=== PATIENT | male | born 1985 | race Caucasian/White ===

== ENCOUNTER 2020-12-06 10:32 | Emergency (ER) | payer MEDICAID, SELFPAY ==
[2020-12-06 11:02] VITALS: BP 139/91; PULSE 69; RESP 18; TEMP 36.2; O2SAT 98; BMI 35.9
--- NOTE | 2020-12-06 11:10 | ED_ITS ---
HPI - Extremity Problem General: Chief complaint: Extremity Problem,Nontraumatic Stated complaint: R SIDE LEG PAIN Time Seen by Provider: 12/06/20 11:07 History of Present Illness: HPI Narrative: Mr. Car is a 35-year-old gentleman with history of gout, anxiety who presents emergency department due to skin lesions and bilateral foot pain. He reports generally not feeling well and about 3 days ago started noticing wounds popping up on his bilateral arms. He denies preceding injury or known provoking factor. These have since drained and become painful. He is applied topical creams without significant relief. He now has bilateral foot swelling that started in the right foot associated with pain. Pain is worse with touch and weightbearing and moderate to severe in intensity. Quality is sharp and aching. He denies other signs of systemic ill ness. He reports the skin lesions are similar to history of MRSA. No other changes in health reported. Review of Systems General: Reports: 10 or more systems reviewed and unremarkable except in HPI and below Physical Exam Narrative: EXAM NARRATIVE: GENERAL/CONSTITUTIONAL -mildly ill-appearing. .Uncomfortable due to pain. Eyes - PERRL, no conjunctival injection ENMT - Atraumatic external nose and ears. Moist mucous membranes NECK - supple. trachea midline CARDIOVASCULAR - regular rate and rhythm. Peripheral pulses 2+ and equal RESPIRATORY -clear to auscultation bilaterally. ABDOMEN/GI - Nontender/Nondistended. MSK - bilateral feet with swelling, scattered erythema more circumferential on the right. Tender to palpation. SKIN - Warm, Dry. There are small approximately 0.5 cm circular draining pustular lesions scattered about both arms, mild overlying erythema. NEURO - alert and appropriately oriented. Moves all extremities equally. Course ED course: - Patient was seen and evaluated by me at bedside - Patient placed on cardiac monitors, IV access obtained - Initial evaluation notable for mildly ill appearance, uncomfortable. Skin lesions on bilateral arms would be atypical for gout, they do appear scattered and draining with some purulent drainage. Bilateral feet are also mildly atypical for gout though certainly could be explained by such, patient reports compliance with daily gout medication. There are no evidence of lacerations or other skin punctures on the feet. Tenderness to even light palpation. -Analgesia given. - Labs notable for leukocytosis, normal lactate. Elevated uric acid - Imaging notable for no acute bony fracture - Upon serial reexamination after treatment the patient was improved with analgesia - Based on patient history, evaluation, labs, and imaging as interpreted the most likely cause of the patient's condition is gout flare with a separate cellulitic component. Patient reports history of MRSA and therefore clindamycin will be ordered in addition to analgesia and steroid which is what the patient has received previously for gout flares with good effect. - The results of ED evaluation were discussed with the patient including prescriptions and/or symptomatic cares (if applicable) including appropriate and responsible use, followup plan, and return precautions. The patient verbalized understanding and felt safe for discharge. - Patient discharged in satisfactory condition. Vital Signs: Vital signs: Vital Signs Temperature 98.2 F 12/06/20 12:53 Pulse Rate 76 12/06/20 12:53 Respiratory Rate 16 12/06/20 12:53 Blood Pressure 133/61 12/06/20 12:53 Pulse Oximetry 100 12/06/20 12:53 MDM - Extremity (Nontraumatic) Medical Records: Attestation: I reviewed the patient's medical records. Lab Data: Attestation: I reviewed the patient's lab results. Labs: Lab Results 12/06/20 12/06/20 12/06/20 11:30 11:30 11:30 WBC 20.4 10^3/uL H 10 ^3/uL (4.0-10.0) RBC 5.17 10^6/uL 10^6 /uL (4.1-5.3) Hgb 15.2 g/dL g/dL (11.7-16.6) Hct 47.8 % % (42.0-52.0) MCV 92.5 fl fl (80-94) MCH 29.4 pg pg (28.0-34.0) MCHC 31.8 g/dL g/dL (30.0-36.0) RDW 13.4 % % (12.1-15.1) Plt Count 459 10^3/cmm H 10 ^3/cmm (130-400) MPV 9.9 fL fL (7.4-10.4) Neut % (Auto) 71.4 % % Lymph % (Auto) 12.5 % % [place] % (Auto) 9.8 % % Eos % (Auto) 2.4 % % Baso % (Auto) 0.7 % % Neut # (Auto) 14.58 10^3/uL H 1 0^3/uL (1.8-7.7) Lymph # (Auto) 2.6 10^3/uL 10^3/ uL (0.8-4.8) [place] # (Auto) 2.0 10^3/uL H 10^ 3/uL (0.2-0.9) Eos # (Auto) 0.5 10^3/uL 10^3/ uL (0.0-0.8) Baso # (Auto) 0.1 10^3/uL 10^3/ uL (0.0-0.1) Nucleated RBC % (a uto) 0 % % Nucleated RBCs # 0.0 /100WBC /100W BC Sodium 136 mmol/L mmol/L (136-145) Potassium 4.2 mmol/L mmol/L (3.5-5.1) Chloride 95 mmol/L L mmol/ L (98-107) Carbon Dioxide 30 mmol/L H mmol/ L (22-29) Anion Gap 15.2 (5-19) BUN 12 mg/dL mg/dL (6-20) Creatinine 0.9 mg/dL mg/dL (0.7-1.2) GFR Calculation 96.0 mL/min mL/mi n (90-130) Glucose 90 mg/dL mg/dL (65-115) Calculated Osmolal ity 281 mOsm/kg L mOs m/kg (285-295) Lactic Acid 1.0 mmol/L mmol/L (0.5-2.2) Uric Acid 8.2 mg/dL H mg/dL (3.4-7.0) Calcium 9.4 mg/dL mg/dL (8.5-10.5) Total Bilirubin 0.4 mg/dL mg/dL (0.15-1.2) AST 30 U/L U/L (0-40) ALT 35 U/L U/L (0-41) Alkaline Phosphata se 144 IU/L H IU/L (40-130) Total Protein 7.6 g/dL g/dL (6.6-8.7) Albumin 3.9 g/dL g/dL (3.5-5.2) Globulin 3.7 g/dL g/dL (1.3-4.6) Discharge Plan Discharge Patient Disposition: Home Clinical Impression: Cellulitis, Gout Condition: Stable Prescriptions: New prednisone 10 mg tablet See Rx Instructions .ROUTE .COMPLEX Qty: 37 RF: 0 clindamycin HCl 150 mg capsule 450 mg PO Q8H 7 Days Qty: 63 RF: 0 oxycodone 5 mg tablet 5 mg PO Q4H PRN (Reason: pain) Qty: 20 RF: 0 Discharge Orders: Discharge ED (Routine); Ordered 12/06/20 Ordered By: Luis Fernando Amezcua Referrals: Christina Canada MD [Primary Care Provider] - Discharge Diet: Usual diet Discharge Activity: Resume usual activity Patient Instructions: Cellulitis (ED), Gout (ED), Opioid Safety Activity Restrictions/Additional Instructions: Thank you for visiting the emergency department. You were seen and evaluated for foot pain as well as rash. You have a gout flare as well as skin infection. You will be given a prescription for antibiotics, steroids, and also analgesic. Please follow all directions given. Please follow-up with your primary care provider. Please return to the emergency department for anything that you are concerned about and feel needs emergency department evaluation. Coding Level of Care Code ED Overlock Operator for Nedra Dobbins
[2020-12-06 11:12] VITALS: BP 127/78; PULSE 84; PULSE 86; RESP 16; TEMP 36.8; O2SAT 100
--- NOTE | 2020-12-06 11:17 | XR_ITS ---
WS: [id number] RIGHT FOOT: 2 VIEW(S) TECHNIQUE: AP and lateral. HISTORY: pain, swelling COMPARISON: None available. No acute fracture or dislocation. Moderate narrowing of the tarsometatarsal articulations. Normal alignment at the tarsometatarsal edvin culation. Several hammertoe deformities. Mild pes planus. Mild soft tissue edema surrounding the metatarsals. XR/XR foot RT 2V [id number] IMPRESSION: 1. Moderate degenerative changes in the midfoot and mild pes planus. 2. Mild soft tissue edema.
--- NOTE | 2020-12-06 11:17 | XR_ITS ---
WS: [id number] LEFT FOOT: 2 VIEW(S) TECHNIQUE: AP and lateral. HISTORY: pain, swelling COMPARISON: None available. No acute fracture or dislocation. Narrowing of the tarsal articulations and osteophyte formation from osteoarthritic disease. There is very mild soft tissue edema surrounding the metatarsals. Mild hammertoe deformities. XR/XR foot LT 2V [id number] IMPRESSION: 1. 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 2. Mild soft tissue edema surrounding the metatarsals. No fracture.
[2020-12-06 11:38] LABS: Basophils # 0.1 10^3/uL (0.0-0.1); Basophils % 0.7 %; Eosinophils # 0.5 10^3/uL (0.0-0.8); Eosinophils % 2.4 %; Hematocrit 47.8 % (42.0-52.0); Hemoglobin 15.2 g/dL (11.7-16.6); Lymphocytes # 2.6 10^3/uL (0.8-4.8); Lymphocytes % 12.5 %; Mean Corpuscular HGB Conc 31.8 g/dL (30.0-36.0); Mean Corpuscular Hemoglobin 29.4 pg (28.0-34.0); Mean Corpuscular Volume 92.5 fl (80-94); Mean Platelet Volume 9.9 fL (7.4-10.4); Monocytes % 9.8 %; Neutrophils # 14.58 10^3/uL (1.8-7.7); Neutrophils % 71.4 %; Nucleated Red Blood Cells % 0 %; Platelet Count 459 10^3/cmm (130-400); Red Blood Count 5.17 10^6/uL (4.1-5.3); Red Cell Distribution Width 13.4 % (12.1-15.1); White Blood Count 20.4 10^3/uL (4.0-10.0)
[2020-12-06] MEDS: ketorolac 30 mg/mL INJ 15 MG IVP (11:45)
[2020-12-06 11:47] VITALS: RESP 16; O2SAT 100
[2020-12-06] MEDS: morphine 4 mg/mL SDV 1 mL IVP (11:47)
[2020-12-06] MEDS: sodium chloride 0.9% 1,000 ML 999 ML IV (11:49)
[2020-12-06 11:50] VITALS: BP 132/75; PULSE 84; RESP 16; O2SAT 100
[2020-12-06 12:20] LABS: Alanine Aminotransferase 35 U/L (0-41); Albumin Level 3.9 g/dL (3.5-5.2); Alkaline Phosphatase 144 IU/L (40-130); Anion Gap 15.2 (5-19); Aspartate Amino Transferase 30 U/L (0-40); Blood Urea Nitrogen 12 mg/dL (6-20); Calcium 9.4 mg/dL (8.5-10.5); Carbon Dioxide 30 mmol/L (22-29); Chloride 95 mmol/L (98-107); Globulin 3.7 g/dL (1.3-4.6); Glucose 90 mg/dL (65-115); Osmolality Calculated 281 mOsm/kg (285-295); Potassium 4.2 mmol/L (3.5-5.1); Sodium 136 mmol/L (136-145); Total Bilirubin 0.4 mg/dL (0.15-1.2); Total Protein 7.6 g/dL (6.6-8.7); Uric Acid 8.2 mg/dL (3.4-7.0)
[2020-12-06] MEDS: clindamycin 150 mg Capsule 450 MG PO (12:50)
[2020-12-06 12:53] VITALS: BP 133/61; PULSE 76; RESP 16; TEMP 36.8; O2SAT 100
== END 2020-12-06 13:33 | disposition home or self-care (01) ==
PROVIDERS: Emergency Provider Emergency Medicine; PCP Family Medicine
DX: M10.9 Gout, unspecified (principal); L03.114 Cellulitis of left upper limb; L03.113 Cellulitis of right upper limb
CPT/HCPCS: 73620; 80053; 83605; 84550; 85025; 87040; 96361; 96374; 96375; 99284; J1885; J2270; J7030

== ENCOUNTER 2021-01-17 15:01 | Emergency (ER) | payer MEDICAID, SELFPAY ==
--- NOTE | 2021-01-17 15:14 | XR_ITS ---
WS: [id number] Exam: XR chest 1V portable [id number] Date/Time of Exam: 01/17/2021 3:14 PM Reason For Exam: chest pain No priors. Findings: The lungs are clear and fully expanded. Costophrenic angles are sharp. No infiltrates. Bronchovascula r relief appears normal. Cardiac silhouette is unremarkable. Bony elements are intact. XR/XR chest 1V portable [id number] IMPRESSION: Unremarkable chest radiograph.
--- NOTE | 2021-01-17 15:14 | ECG_ITS ---
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 Measurements Intervals [place] Rate: 84 P: 26 RI: 131 QRS: 20 QRSD: 98 T: 62 QT: 349 QTc: 414 Interpretive Statements SINUS RHYTHM NONSPECIFIC T-WAVE ABNORMALITY INTERPRETATION BASED ON A DEFAULT AGE OF 40 YEARS No previous ECG available for comparison Electronically Signed On 01-17-2021 21:56:07 SANITATION TRUCK DRIVER by Yusuf Mullins M.D. [id number]
[2021-01-17 15:15] VITALS: BP 120/79; PULSE 90; RESP 16; TEMP 37.3; O2SAT 96; BMI 35.6
[2021-01-17 15:50] LABS: Basophils # 0.1 10^3/uL (0.0-0.1); Basophils % 1.3 %; Eosinophils # 0.3 10^3/uL (0.0-0.8); Eosinophils % 2.8 %; Hematocrit 42.5 % (42.0-52.0); Hemoglobin 13.2 g/dL (11.7-16.6); Lymphocytes # 2.8 10^3/uL (0.8-4.8); Lymphocytes % 27.1 %; Mean Corpuscular HGB Conc 31.1 g/dL (30.0-36.0); Mean Corpuscular Hemoglobin 28.7 pg (28.0-34.0); Mean Corpuscular Volume 92.4 fl (80-94); Mean Platelet Volume 9.8 fL (7.4-10.4); Monocytes # 0.8 10^3/uL (0.2-0.9); Monocytes % 7.9 %; Neutrophils # 6.14 10^3/uL (1.8-7.7); Neutrophils % 59.8 %; Nucleated Red Blood Cells % 0 %; Platelet Count 529 10^3/cmm (130-400); White Blood Count 10.3 10^3/uL (4.0-10.0)
[2021-01-17 16:04] LABS: Alanine Aminotransferase 29 U/L (0-41); Albumin Level 3.9 g/dL (3.5-5.2); Alkaline Phosphatase 116 IU/L (40-130); Anion Gap 18.2 (5-19); Aspartate Amino Transferase 19 U/L (0-40); Blood Urea Nitrogen 23 mg/dL (6-20); Calcium 9.1 mg/dL (8.5-10.5); Carbon Dioxide 24 mmol/L (22-29); Chloride 101 mmol/L (98-107); Glomerular Filtration Rate 76.2 mL/min (90-130); Glucose 97 mg/dL (65-115); Osmolality Calculated 290 mOsm/kg (285-295); Potassium 5.2 mmol/L (3.5-5.1); Sodium 138 mmol/L (136-145); Total Bilirubin 0.2 mg/dL (0.15-1.2); Total Protein 6.9 g/dL (6.6-8.7)
[2021-01-17 16:18] LABS: Troponin(5th) Baseline 14 ng/L (0-15)
[2021-01-17 16:19] VITALS: BP 110/62; PULSE 80; RESP 18; O2SAT 97
--- NOTE | 2021-01-17 17:14 | ECG_ITS ---
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 Measurements Intervals [place] Rate: 72 P: 32 IA: 131 QRS: 68 QRSD: 94 T: 46 QT: 376 QTc: 412 Interpretive Statements SINUS RHYTHM NONSPECIFIC T-WAVE ABNORMALITY No previous ECG available for comparison Electronically Signed On 01-18-2021 22:48:37 BOX COVERING MACHINE OPERATOR by Yusuf Mullins M.D. [id number]
--- NOTE | 2021-01-17 17:17 | ED_ITS ---
HPI - Chest Pain General: Chief Complaint: Chest Pain Stated Complaint: Chest pains into l shoulder Started a few days ago Time Seen by Provider: 01/17/21 17:08 History of Present Illness: HPI narrative: Patient is a 35-year-old male comes to the ED with chest pain. Patient has been having this chest pain on and off for the past couple years. This episode of chest pain started approximately 3 days ago. He describes it as a sharp pain in the center of the chest which sometimes radiates into his left shoulder. Here in the ED he says his chest pain has resolved. He is not taking any meds to help with his pain he does endorse a lot of stress and anxiety in his life currently says he is dealing with a custody callahan with his kids and some other personal issues. Denies any palpitations, fever, abdominal pain, nausea/vomiting, bladder or bowel symptoms. Associated symptoms: Deny abdominal pain, dyspnea, fever(s), nausea, palpitations or vomiting Review of Systems Const: Denies: fever(s), chills or fatigue Eyes: Denies: change in vision or eye discomfort ENMT: Denies: throat pain, odynophagia, nasal discharge or nasal congestion Card: Reports: chest pain; Denies: palpitations, edema, swelling of feet/ankles, dyspnea on exertion or orthopnea Resp: Denies: dyspnea, productive cough or non-productive cough GI: Denies: abdominal pain, nausea, vomiting, diarrhea, constipation or hematochezia : Denies: flank pain, difficulty urinating, dysuria or hematuria Musc: Denies: neck pain, back pain or extremity swelling Skin/Breast: Denies: rash or new lesions Neuro: Denies: headache(s), numbness in extremities or weakness in extremities Psych: Reports: anxiety Physical Exam Const: COMMON NORMALS: no acute distress, patient oriented x3 and alert GENERAL APPEARANCE: cooperative and comfortable HENMT: COMMON NORMALS: normocephalic HEAD & SCALP: normocephalic MOUTH: Normal oral and palatal mucosa present THROAT: posterior oropharynx normal and uvula midline Eye: COMMON NORMALS: Equal, round and reactive pupils present PUPIL: Yes Equal, round and reactive pupils present Neck/C-Spine: COMMON NORMALS: supple GENERAL: Yes normal visual inspection Resp: COMMON NORMALS: normal respiratory effort, No retractions, No use of accessory muscles and clear to auscultation bilaterally AUSCULTATION: clear to auscultation bilaterally Cardio: COMMON NORMALS: regular rate, regular rhythm, S1 normal heart sound present, S2 normal heart sound present, No gallops present (Cardio), No clicks present (Cardio), No murmurs present (Cardio) and Peripheral pulses 2+ throughout RATE: regular rate RHYTHM: regular rhythm HEART SOUNDS: S1 n ormal heart sound present and S2 normal heart sound present PERIPHERAL PULSES: Peripheral pulses 2+ throughout GI: COMMON NORMALS: Normal to inspection, nondistended, normoactive bowel sounds present, Soft to palpation, non-tender and no masses PALPATION: Yes Soft to palpation : COMMON NORMALS: Yes no CVA tenderness BLADDER/KIDNEY EXAM: Yes no CVA tenderness Back/Pelvis: COMMON NORMALS: no CVA tenderness Extremity: COMMON NORMALS: normal to inspection Neuro: COMMON NORMALS: patient oriented x3 and moves all extremities SENSORIUM/ORIENTATION: Yes alert Skin: GENERAL SKIN EXAM: dry skin Course Reevaluation(s): Reevaluation #1: Patient was given a dose of Ativan while here in the ED and he says his chest pain symptoms did improve. Time: 18:21 Vital Signs: Vital signs: Vital Signs Temperature 99.1 F 01/17/21 15:15 Pulse Rate 73 01/17/21 18:00 Respiratory Rate 18 01/17/21 18:48 Blood Pressure 117/75 01/17/21 18:00 Pulse Oximetry 97 01/17/21 18:00 MDM - Chest Pain MDM Narrative: Medical decision making narrative: Patient is a 35-year-old male comes to the ED with chest pain. Patient said he has been having this chest pain for the past year. Chest pain occurs whether he is at rest or exertion, but states that exertion does not make it any worse. He endorses having a lot of stress and anxiety going on in his life currently. Vital stable. Exam was benign. CBC and CMP were unremarkable. Troponin negative. EKG showed normal sinus rhythm, [address] segment elevation or dep ression seen. T waves were normal. Chest x-ray showed no acute findings. He was given a dose of Ativan while here in the ED and his symptoms improved. Patient was diagnosed with noncardiac chest pain and discharged home. He was sent home with a prescription for Vistaril to use for any acute anxiety. He was told to follow-up with his PCP in 7 to 10 days reevaluation. Return to ED precautions given. Patient understood agree with plan. Lab Data: Attestation: I reviewed the patient's lab results. Labs: Lab Results 01/17/21 01/17/21 01/17/21 15:26 15:26 15:26 WBC 10.3 10^3/uL H 10 ^3/uL (4.0-10.0) RBC 4.60 10^6/uL 10^6 /uL (4.1-5.3) Hgb 13.2 g/dL g/dL (11.7-16.6) Hct 42.5 % % (42.0-52.0) MCV 92.4 fl fl (80-94) MCH 28.7 pg pg (28.0-34.0) MCHC 31.1 g/dL g/dL (30.0-36.0) RDW 13.0 % % (12.1-15.1) Plt Count 529 10^3/cmm H 10 ^3/cmm (130-400) MPV 9.8 fL fL (7.4-10.4) Neut % (Auto) 59.8 % % Lymph % (Auto) 27.1 % % [place] % (Auto) 7.9 % % Eos % (Auto) 2.8 % % Baso % (Auto) 1.3 % % Neut # (Auto) 6.14 10^3/uL 10^3 /uL (1.8-7.7) Lymph # (Auto) 2.8 10^3/uL 10^3/ uL (0.8-4.8) [place] # (Auto) 0.8 10^3/uL 10^3/ uL (0.2-0.9) Eos # (Auto) 0.3 10^3/uL 10^3/ uL (0.0-0.8) Baso # (Auto) 0.1 10^3/uL 10^3/ uL (0.0-0.1) Nucleated RBC % (a uto) 0 % % Nucleated RBCs # 0.0 /100WBC /100W BC Sodium 138 mmol/L mmol/L (136-145) Potassium 5.2 mmol/L H mmol /L (3.5-5.1) Chloride 101 mmol/L mmol/L (98-107) Carbon Dioxide 24 mmol/L mmol/L (22-29) Anion Gap 18.2 (5-19) BUN 23 mg/dL H mg/dL (6-20) Creatinine 1.1 mg/dL mg/dL (0.7-1.2) GFR Calculation 76.2 mL/min L mL/ min (90-130) Glucose 97 mg/dL mg/dL (65-115) Calculated Osmolal ity 290 mOsm/kg mOsm/ kg (285-295) Calcium 9.1 mg/dL mg/dL (8.5-10.5) Total Bilirubin 0.2 mg/dL mg/dL (0.15-1.2) AST 19 U/L U/L (0-40) ALT 29 U/L U/L (0-41) Alkaline Phosphata se 116 IU/L IU/L (40-130) Troponin T Baselin e 14 ng/L ng/L (0-15) Troponin T 120 [place] Troponin T Total Protein 6.9 g/dL g/dL (6.6-8.7) Albumin 3.9 g/dL g/dL (3.5-5.2) Globulin 3.0 g/dL g/dL (1.3-4.6) 01/17/21 17:22 WBC RBC Hgb Hct MCV MCH MCHC RDW Plt Count MPV Neut % (Auto) Lymph % (Auto) [place] % (Auto) Eos % (Auto) Baso % (Auto) Neut # (Auto) Lymph # (Auto) [place] # (Auto) Eos # (Auto) Baso # (Auto) Nucleated RBC % (a uto) Nucleated RBCs # Sodium Potassium Chloride Carbon Dioxide Anion Gap BUN Creatinine GFR Calculation Glucose Calculated Osmolal ity Calcium Total Bilirubin AST ALT Alkaline Phosphata se Troponin T Baselin e Troponin T [address] [place] 13.71 ng/L ng/L (0-15) Delta Troponin T -0.29 ABS# L ABS# (0-10) Total Protein Albumin Globulin Imaging Data^: CXR: Attestation: I personally reviewed and interpreted this imaging study as follows: Radiologist's impression: [address] [id number] ReportSigned Patient: Carole Car #: [id number]: 1985Acct#:[id number]/Sex: 35 / MADM Date: 01/17/21Loc: ERRoom/Bed:Attending Dr: Ordering Provider/Ordering MD: Rehana Venegas Date of Service: 01/17/21 Procedure(s): XR chest 1V portable [id number] Accession Number(s): [id number] Report Number: [id number] WS: [id number] Exam: XR chest 1V portable [id number] Date/Time of Exam: 01/17/2021 3:14 PM Reason For Exam: chest pain No priors. Findings: The lungs are clear and fully expanded. Costophrenic angles are sharp. No infiltrates. Bronchovascular relief appears normal. Cardiac silhouette is unremarkable. Bony elements are intact. XR/XR chest 1V portable [id number] IMPRESSION: Unremarkable chest radiograph. Dictated By:Darion Velarde By:Darion Velarde Date/Time:01/17/21 1539DD/ 153 EKG Data^: EKG 1: Attestation: I personally reviewed and interpreted this EKG as follows: EKG interpretation date: 01/17/21 Interpretation: Normal sinus rhythm, 84 bpm, no ST segment elevation or depression seen. T waves appear normal. Discharge Plan Discharge Patient Disposition: Home Clinical Impression: Non-cardiac chest pain Condition: Stable Prescriptions: New Vistaril 50 mg capsule 50 mg PO Q8H PRN (Reason: acute anxiety) Qty: 30 RF: 0 No Action prednisone 10 mg tablet See Rx Instructions .ROUTE .COMPLEX Qty: 37 RF: 0 oxycodone 5 mg tablet 5 mg PO Q4H PRN (Reason: pain) Qty: 20 RF: 0 Discharge Orders: Discharge ED (Routine); Ordered 01/17/21 Ordered By: Rudy Millan Referrals: Sterling Lara DO [Primary Care Provider] - Discharge Diet: Regular Discharge Activity: Increase activity as tolerated Patient Instructions: Noncardiac Chest Pain (ED) Activity Restrictions/Additional Instructions: Follow-up with medical provider as directed in 5 to 7 days reevaluation. Take medications as prescribed. Return to the ER or your medical provider if condition worsens. Please read and understand discharge instructions. Thank you for choosing [facility] for your healthcare needs today. Please realize this is an emergency room and that we are providing you with a medical screening exam and this may not be complete and all inclusive of all the testing and or work up that you may need to determine your ailment or severity of your illness. It is very important that you follow up as instructed or that you return to the Emergency Department should you have concerns or if your condition changes or worsens in any way. Coding Level of Care Code ED Electrician Substation for Nedra Fwharman Exam Comprehensive
[2021-01-17] MEDS: LORazepam 1 mg Tablet PO (17:38)
[2021-01-17 18:00] VITALS: BP 117/75; PULSE 73; RESP 18; O2SAT 97
[2021-01-17 18:09] LABS: Troponin 5 2HR 13.71 ng/L (0-15); Troponin 5 2HR Delta -0.29 ABS# (0-10)
[2021-01-17 18:48] VITALS: RESP 18
== END 2021-01-17 18:49 | disposition home or self-care (01) ==
PROVIDERS: Physician Assistant; Emergency Provider Physician Assistant; PCP Family Medicine
DX: R07.89 Other chest pain (principal)
CPT/HCPCS: 36415; 71045; 80053; 84484; 85025; 93005; 99283